=== PATIENT | male | born 1995 | race Caucasian/White ===

== ENCOUNTER → 2016-12-22 | Outpatient (CLI) | payer MEDICAID ==
--- NOTE | 2016-12-23 13:02 | CT ---
EXAMINATION TYPE: CT abdomen pelvis w con DATE OF EXAM: 12/22/2016 7:09 PM COMPARISON: 05/16/2015 HISTORY: R/O peritonitis. Hx of ileostomy with large bowel removed. CT DLP: 334.0 mGycm Automated exposure control for dose reduction was used. CONTRAST: CT scan of the abdomen pelvis is performed with IV Contrast, patient injected with 100 mL of Omnipaqu e 300. FINDINGS- LUNG BASES- No significant abnormality is appreciated. LIVER/GB-there is a geographic shaped area of low attenuation involving the dome of the liver extendi ng into the right lobe of the liver posterior segment. Visualized portal vein enhances normally. Corinne yed imaging suggest hepatic veins are patent. Not seen by outside exam.. PANCREAS- No gross abnormality is seen. SPLEEN- No gross abnormality is seen. Accessory spleen noted. ADRENALS- No gross abnormality is seen. KIDNEYS/BLADDER- no hydronephrosis, nephrolithiasis or renal mass. BOWEL- no bowel dilatation. Postoperative change suggestive an ileostomy noted. LYMPH NODES- No greater than 1cm abdominal or pelvic lymph nodes are appreciated. OSSEOUS STRUCTURES- No significant abnormality is seen. OTHER- aorta of normal caliber. Small anterior abdominal wall periumbilical hernia noted with no IMPRESSION- 1. There is a geographic shaped area of low attenuation involving the dome of the liver extending int o the right lobe of the liver posterior segment. New from previous exam. Differential diagnosis incl udes hepatic infarction. Correlate clinically for hepatocellular disease. No enhancement. Recommend c orrelate clinically if necessary with MRI with contrast.
== END | disposition home or self-care (01) ==
LOC: RADCTMAIN 17:21
PROVIDERS: ATTEND Internal Medicine
DX: R93.5 Abnormal findings on diagnostic imaging of other abdominal regions, including retroperitoneum (principal)
CPT/HCPCS: 74177; Q9967

== ENCOUNTER → 2020-12-10 | Outpatient (CLI) | payer BC | END | disposition home or self-care (01) | LOC: LABWHC1 11:00 | PROVIDERS: ATTEND Family Medicine | DX: R00.9 Unspecified abnormalities of heart beat (principal) | CPT/HCPCS: 36415; 93005 ==